=== PATIENT | female | born 1955 | race Caucasian/White ===

== ENCOUNTER 2022-04-10 16:43 | Emergency (ER) | payer SELFPAY ==
[~2022-04-10] VITALS: Ht 170 cm; Wt 84.0 kg
[~2022-04-10 16:43] MED LIST: LEVO500T69 PO; MTR250T PO
--- NOTE | 2022-04-10 17:42 | ED General ---
General Chief Complaint: COVID19 Suspect/Confirmed Stated Complaint: PLUNKETT,BODY ACHES,FEVER,DIARHEA Nursing Triage Note: PT AMB TO [facility] WITH C/O FEELING WEEK, BODY ACHES, PLUNKETT AND DECREASED APPETITE SINCE THURSDAY. PT STATES SHE HAD A FEVER A COUPLE OF DAYS AGO BUT NOT SINCE THEN Source of Information: Patient Exam Limitations: No Limitations History of Present Illness Date Seen by Provider: Apr 10, 2022 Time Seen by Provider: 17:40 Initial Comments Patient is a 66-year-old female who presents to the ED with body aches, chills, weakness, headache decreased appetite. Symptoms started on Thursday. Started having a low-grade temperature. She report loose stool which has improved. The body aches and the headache improved with anti-inflammatories. She just reports weakness today. She is concerned for COVID. Up-to-date her COVID-vaccine. She denies of any worsening head pain, visual changes, chest pain, cough, shortness of breath, abdominal pain, urinary symptoms Allergies and Home Medications Allergies Uncoded Allergies: PENICILLIN (Allergy, Unknown, 03/06/11) Patient Home Medication List Home Medication List Reviewed: Yes Levofloxacin (Levaquin 500 Mg) 500 Mg Tab, 1 EACH PO DAILY, (Reported) Entered as Reported by: GRACE GUNDERSON on 03/09/11931 Metronidazole (Flagyl 250 Mg) 250 Mg Tab, 250 MG PO TID, (Reported) Entered as Reported by: GRACE GUNDERSON on 03/09/1132 Review of Systems Review of Systems Constitutional: chills, malaise, weakness EENTM: No ear pain, No blurred vision, No double vision, No mouth pain, No mouth swelling, No throat pain, No throat swelling Respiratory: No cough, No short of breath Cardiovascular: No chest pain Gastrointestinal: No abdominal pain; diarrhea; No nausea, No vomiting Musculoskeletal: No back pain, No joint pain Skin: No change in color All Other Systems Reviewed Negative Unless Noted: Yes Past Yztcuho-Ecknsu-Rkqxlt Hx Patient Social History Tobacco Use?: Yes Tobacco type used: Cigarettes Smoking Status: Current Everyday Smoker Substance use?: No Alcohol Use?: Yes Alcohol type: Beer Alcohol Frequency: Rarely Pt feels they are or have been: No Immunizations Up To Date Influenza Vaccine Up-to-Date: No; Not Current Past Medical History Surgery/Hospitalization HX: DENIES Reproductive Disorders: No Physical Exam Vital Signs Vital Signs - First Documented 04/10/22 17:11 Temp 36.6 Pulse 61 Resp 16 B/P (MAP) 136/88 (104) Capillary Refill : Height, Weight, BMI Height: '" Weight: lbs. oz. kg; 29.00 BMI Method: General Appearance: No Apparent Distress, WD/WN Eyes: Bilateral Eye Normal Inspection, Bilateral Eye PERRL, Bilateral Eye EOMI HEENT: PERRL/EOMI, TMs Normal, Normal ENT Inspection, Pharynx Normal Neck: Full Range of Motion, Normal Inspection, Non Tender, Supple Respiratory: Chest Non Tender, Lungs Clear, Normal Breath Sounds, No Accessory Muscle Use, No Respiratory Distress Cardiovascular: Regular Rate, Rhythm, No Edema, No Gallop, No JVD Gastrointestinal: Normal Bowel Sounds, No Organomegaly, No Pulsatile Mass, Non Tender Neurologic/Psychiatric: Alert, Oriented x3, No Motor/Sensory Deficits, Normal Mood/Affect Skin: Normal Color, Warm/Dry Progress/Results/Core Measures Suspected Sepsis SIRS Temperature: Pulse: 61 Respiratory Rate: 16 Blood Pressure 136 /88 Mean: 104 Results/Orders Lab Results Laboratory Tests Test 04/10/22 17:18 Range/Units Influenza Type A (RT-PCR) Not Detected Not Detecte Influenza Type B (RT-PCR) Not Detected Not Detecte SARS-CoV-2 RNA (RT-PCR) Detected H Not Detecte My Orders Orders - SOURAV REED Covid 19 Inhouse Test (04/10/22 17:26) Influenza A And B By Pcr (04/10/22 17:26) Bebtelovimab (Bebtelovimab) (04/10/22 18:00) Rx-Nirmatrelvir/Ritonavir(Eua) (Rx-Paxlo (04/10/22 18:05) Vital Signs/I&O 04/10/22 04/10/22 17:11 18:16 Temp 36.6 36.6 Pulse 61 63 Resp 16 16 B/P (MAP) 136/88 (104) 104/64 Capillary Refill : Blood Pressure Mean: 104 Departure Communication (PCP) Patient with flulike symptoms started on Thursday symptoms have improved some besides generalized weakness. Patient is otherwise healthy. Stable vital signs. Exam otherwise benign. Positive for COVID. She agreed for paxlovid. Recommend quarantine for a total duration from the start of symptoms 10 to 14 days. If any worsening symptoms such as difficulty breathing, chest pain to return back to ED for further evaluation. Patient in no acute respiratory distress Impression Primary Impression: COVID-19 Disposition: 01 HOME, SELF-CARE Condition: Stable Departure-Patient Inst. Decision time for Depature: 18:06 Referrals: JENIFER DÍAZ DO (PCP) Primary Care Physician LAUREN DÍAZ DNP (Family) Primary Care Physician Patient Instructions: COVID-19 (DC) Add. Discharge Instructions: Recommend quarantine for the next 7 days. If any worsening symptoms such as difficulty breathing, chest pain to return back to ED. All discharge instructions reviewed with patient and/or family. Voiced un derstanding. SOURAV REED Apr 10, 2022 17:42
[2022-04-10] MEDS ORDERED: BEBTELOVIMAB 175 MG/2 ML VIAL IV ONE (18:00)
[2022-04-10] MEDS ORDERED: RX-NIRMATRELVIR/RITONAVIR (PAXLOVID) #30 TABS PO ONE (18:05)
[2022-04-10 18:16] VITALS: BP 104/64
== END 2022-04-10 18:34 | disposition home or self-care (01) ==
LOC: EDUNIT# 16:43 → ER 16:47
DX: U07.1 COVID-19 (principal); F17.210 Nicotine dependence, cigarettes, uncomplicated; Z28.310 Unvaccinated for COVID-19
CPT/HCPCS: 87636; 99283